=== PATIENT | male | born 1960 | race Caucasian/White ===

== ENCOUNTER 2016-04-22 16:00 | Inpatient (IN) | payer BC ==
[~2016-04-22] VITALS: Ht 182.9 cm; Wt 106.1 kg
--- NOTE | ~2016-04-22 | OR ---
PATIENT'S NAME: [facility] AGE: 55 Y [address] ROOM: [place] [address] LOCATION: [facility] ADMIT DATE: 05/06/2016 OR/Procedure Report DISCHARGE DATE: FAMILY PHYSICIAN: Benjamin Barnett MD ATTENDING PHYSICIAN: KEV MURPHY SURGEON: Kev Murphy DO TRAFFIC CHECKER: DATE OF PROCEDURE: 05/06/2016 PREOPERATIVE DIAGNOSIS: Right knee degenerative arthritis. POSTOPERATIVE DIAGNOSIS: Right knee degenerative arthritis. OPERATION PERFORMED: Right total knee arthroplasty, cemented tibia and femur, using medial parapatellar/subvastus approach. ADMINISTRATION MANAGER: Manoj Chery PA-C. PA was present during entire case, instrumental for positioning, increased visibility, retractor holding, as well as wound closure, dressing placement and transport from OR table. TOURNIQUET TIME: 38 minutes. ANESTHESIA: Preoperative adductor canal block with spinal anesthetic. HARDWARE: The patient's specific implants. Femur size 10, tibia cemented size G. Patelloplasty was performed and not resurfaced. Polyethylene size 11 Medial Congruent. COMPLICATIONS: None. ANTIBIOTICS: Given. TIMEOUT: Performed. 1 gram IV tranexamic acid given on incision, second gram topically at closure. SPECIMENS: None. ESTIMATED BLOOD LOSS: Less than 50 mL. HISTORY: This is a pleasant 55-year-old, has persistent knee pain, has failed conservative therapy including physical therapy, braces, and injections. The patient continues to suffer pain and fails activities of daily living. It is limiting quality of life and ADLs. We had a discussion regarding further treatment options as the patient has failed all conservative care. The patient PATIENT'S NAME: [facility] AGE: 55 Y [address] ROOM: [place] [address] LOCATION: [facility] ADMIT DATE: 05/06/2016 OR/Procedure Report DISCHARGE DATE: FAMILY PHYSICIAN: Benjamin Barnett MD ATTENDING PHYSICIAN: KEV MURPHY wished to proceed with total knee arthroplasty. The risks, benefits, goals and potential complications were discussed. The patient had been through the total joint course and reviewed our online resources in [facility] and then given written handout with the explanations, risks, benefits, and potential treatment complications. Consent signed on the chart. The patient understands the risk of implant recalls; potential for infection up to 2% including deep infection, this could result in multiple surgeries of explant antibiotic spacers and third surgery. The patient understands the risk of fractures; neurovascular injury; damage to arteries, nerves, muscles, tendons; loss of motion; pain; potential to develop a DVT, which could lead to pulmonary embolus and even . The patient has been well informed of the treatment options, risks, benefits, and chance of complications. The patient elects to proceed. DESCRIPTION OF PROCEDURE: The patient was brought back to the operating room theater under anesthesia. The patient was prepped and draped in the usual sterile fashion with the leg exsanguinated and tourniquet inflated. A midline incision starting from the medial aspect of the tibial tubercle approximately 3 fingerbreadths above the superior pole of the patella. Medial parapatellar arthrotomy with subvastus approach exposed the deep capsule. The deep medial capsule was elevated off the medial side of the tibia based on whether they are varus or valgus. Fat pad removed with careful attention not to injure the patellar tendon and the anterior horns of the medial and lateral meniscus were removed. ACL was sacrificed and a retractor was placed protecting the medial and lateral collateral ligaments. The distal cutting block put in position. Appropriate resection taken off the distal femur. After confirmed positioning, slope, proximal tibia resected. Careful attention protecting the collateral ligaments, patellar tendon with bicondylar smooth and dual PCL retractor placed to protect the posterior structures. We then placed a spacer block to confirm adequate bony resections with extension gap. Medial and lateral compartments were cleaned out of any meniscus and soft tissue protecting the collaterals, popliteus, and posterior structures. The anterior and posterior chamfer cuts were made confirming no notching anteriorly. Bony osteophytes removed. A trial femur was placed and using a poly, I floated the tibia confirming intact collateral ligaments and good balancing. If any further releases were needed, those were performed. I confirmed there were no posterior osteophytes of the distal femur, floating technique, I marked the position of the tibia. Final preparation of the femur with lug holes drilled. I then removed the trial femur, placed the tibia, and confirmed axial alignment with PSI and the floating technique. Once satisfied, the trial tibial plate was locked into place confirming with drop benitez appropriate alignment and slope. The final tibia was drilled and cruciate punch performed. With the trials in place, went through range of motion, confirming excellent stability with varus/valgus stress and good stability at 0, 30, and 90 degrees of motion. I confirmed the patella was well tracking after osteophytes PATIENT'S NAME: BRITTANI PASTOR [facility] AGE: 55 Y [address] ROOM: [address] [address] LOCATION: [facility] ADMIT DATE: 05/06/2016 OR/Procedure Report DISCHARGE DATE: FAMILY PHYSICIAN: Benjamin Barnett MD ATTENDING PHYSICIAN: KEV MURPHY removed. A patelloplasty was performed with no resurfacing. All trials were then removed. The bone was pulsatiled to clean and dry surface. Exparel cocktail using multiple stabs with careful aspiration not to inject intravascularly, staying away from the lateral compartment as to not cause foot drop. The tibia was placed followed by femur, held in full extension with trial poly. Excess cement removed. Reconfirmed stability with trial poly. If PCL well functioning, I used a high-flex Medial Congruent poly; if PCL at risk for deficiency, a deep-dish polyethylene used. Once the trial poly was removed, confirmed all cement was hardened and excess cement removed. Range of motion confirmed again prior to final poly being locked into place. Aquamantys was used to establish hemostasis with tourniquet deployed. Final poly locked into place. Hemostasis achieved. Wound closure involved #2 Vicryl in a [id number] pattern along the capsulotomy followed by #2 Quill, Monocryl in a simple buried pattern followed by V-Loc Dermabond. Once the Dermabond cured, the staff placed a Mepilex dressing followed by pulling the thigh-high LULÚ hose over the wound and insulating the skin to prevent soft tissue cold injury from the [employer]. Please note that SCDs and LULÚ hose started preop in the recovery room, continued on the nonoperative site to prevent DVT. Sponge and needle counts were reported correct x3. The patient will be followed by hospitalist, allowed to weight bear as tolerated, with encouraged physical therapy. On the day of surgery, continue prophylactic antibiotics for the first 24 hours. Continue DVT prophylaxis with SCDs, foot pumps, and LULÚ hose. Unless contraindicated, they will start full-strength aspirin within 23 hours and continue for a month. JASBIR Chery was present during entire case, she insisted in transferring the patient to and from the operating table, holding retractors to improve visibility, and hold the extremity. He also assisted in wound closure of the subcutaneous tissue and skin as well as apply dressings and transfer the patient off the operating table. KEV MURPHY DO PH/modl /[id number] d: 05/07/16 0010 t: 05/26/16 1732, OPERATIVE SUMMARY
--- NOTE | ~2016-04-22 | DS ---
PATIENT'S NAME: BRITTANI PASTOR [facility] AGE: 55 Y [address] ROOM: [id number] [place], [place] [address] LOCATION: [facility] ADMIT DATE: 05/06/2016 Discharge Summary DISCHARGE DATE: 05/08/2016 FAMILY PHYSICIAN: Benjamin Barnett MD ATTENDING PHYSICIAN: Luc Murphy ADMISSION DIAGNOSIS: Right knee degenerative joint disease. DISCHARGE DIAGNOSIS: Status post right total knee arthroplasty. HISTORY OF PRESENT ILLNESS: The patient is a very pleasant, 55-year-old male who presented to our office for ongoing persistent right knee pain times several years. The patient stated that he had tried conservative treatment, but had failed and his quality of life as well as activities of daily living have negatively impacted due to right knee pain. The patient has failed conservative therapies with the use of cortisone injections, anti- inflammatories, and physical therapy. The patient wished to discuss total knee arthroplasty. Risks and benefits were discussed including infection up to 2%, DVT, pulmonary embolism, need for further surgery, implant recall; damage to nerves, arteries, veins, ligaments, and tendons; and even . The patient understood these risks and wished to proceed. He was scheduled for a right total knee arthroplasty by Dr. Murphy. The patient was to have a preoperative physical done by his primary care provider within 30 days of surgery. HOSPITAL COURSE: The patient presented to the hospital on 05/06/2016 to undergo a right total knee arthroplasty by Dr. Murphy. Risks and benefits were discussed with the patient and consent was signed with Dr. Murphy present prior to surgery. The patient was taken back to the operating room, and had a right total knee arthroplasty performed by Dr. Murphy. The patient tolerated the procedure well, had no complications. He was taken to PACU and then [facility] for followup care postoperatively. The patient had 23 hours of prophylactic antibiotics per protocol. The patient to be on 24 hours of antibiotics. The patient started DVT prophylactics with the use of resuming his Xarelto at 10 mg daily 23 hours postprocedure per protocol. He had 10 mg of Xarelto for 3 days followed by him returning to his full previous dose of 20 mg daily of Xarelto. The patient did well with physical therapy and occupational therapy, progressed as tolerated each day. The patient did attend and enjoy class taught by Kashif Rodney PA-C, and stated he enjoyed the class very much and was very informative. The patient discharged to home in stable condition. He tolerated the pain medications well without any side effects on 05/08/2016. The patient did have some difficulty with nausea and vomiting due to the Percocet, therefore he was placed on Nucynta which he tolerated well. The patient discharged in stable condition with his . Medications reviewed, new medication Nucynta. Allergies to medications PATIENT'S NAME: BRITTANI PASTOR [facility] AGE: 55 Y [address] ROOM: [id number] [place], [place] [address] LOCATION: [facility] ADMIT DATE: 05/06/2016 Discharge Summary DISCHARGE DATE: 05/08/2016 FAMILY PHYSICIAN: Benjamin Barnett MD ATTENDING PHYSICIAN: Luc Murphy reviewed. DISCHARGE INSTRUCTIONS: 1. Discharge disposition: To home with his . 2. Weightbearing status: Weightbearing as tolerated on the right lower extremity with a walker as needed. 3. Dressing: The Mepilex dressing on until followup. Cover when showering. Avoid use of hot tubs, swimming pools, and lakes. He is to call if any questions or concerns regarding drainage or high fevers. 4. Followup care: The patient to follow up with Dr. Murphy or myself in the clinic in 2 weeks. He will call with any questions or concerns. 5. Diet: Regular as tolerated. PK POSADAS PA-C FOR LUC MURPHY, DO KAPOOR/izzyl /[id number] d: 05/12/161814 t: 05/21/16 1322, DISCHARGE SUMMARY
[2016-04-23] MEDS ORDERED: PRILOSEC20 MG PO (13:32)
[2016-04-23] MEDS ORDERED: TIKOSYN250 MCG PO (13:33)
[2016-04-23] MEDS ORDERED: ASPIRIN EC81 MG PO (13:33)
[2016-04-23] MEDS ORDERED: CELEBREX200 MG PO (13:33)
[2016-04-23] MEDS ORDERED: LOTRISONE15 GM TOP (13:34)
[2016-04-23] MEDS ORDERED: XARELTO20 MG PO (13:34)
[2016-04-23] MEDS ORDERED: BYSTOLIC5 MG PO (13:34)
[2016-04-23] MEDS ORDERED: FISH OIL 1,2001 EAC2 PO (13:35)
[2016-04-23] MEDS ORDERED: THERA-VITE W/ B1 TAB PO (13:35)
[2016-04-23] MEDS ORDERED: EQUATE ALLERGY PO (13:36)
[2016-05-03] MEDS ORDERED: AMOXICILLIN500 MG PO (06:35)
--- NOTE | 2016-05-06 16:52 | NUR ---
Significant Event: From PACU at 1045. Ambulates with one assist and walker. Dressing C/D/I. Ez wrap ice at all times. Dilaudid 2mg at 1620. Titrated to room air. CSM WNL. Follow up:
--- NOTE | 2016-05-06 17:11 | NUR ---
Introduced self/role to patient and . Reviewed and encouraged use of IS. Demonstrates with good technique. Encouraged waving of his feet. In preop class reports has walker, cane, wheelchair, crutches, bath seat, elevated toilet seat, hand held shower head. Lives in [place] in one level home with railing on L side. Planning to return home with help from . WIll follow and asssit with identified needs.
--- NOTE | 2016-05-07 04:15 | NUR ---
Significant Event: A&O. Heart rate irregular, now in 80's-90's. Beginning of shift was 110's-120. Pt does have a hx of Afib. Titrated to room air. Has denied nausea this shift. Voiding w/o difficulty. IV saline locked. Next ATB due at 0800. Mepilex/transparent dressing to R) knee is CDI. Ice and elevated. Ambulates to bathroom with 1 ast, gait belt and walker. CSM WNL. Taking Dilaudid for pain, last at 0153, plan to give again prior to change of shift. Follow up: Cont. to monitor HR.
[2016-05-07 05:54] LABS: HEMATOCRIT 42.8 % (37.0-53.0); HEMOGLOBIN 13.6 g/dL (12.0-17.0)
[2016-05-07 06:07] LABS: ANION GAP 12.3 (10.0-19.0); BLOOD UREA NITROGEN 13 mg/dL (6-24); CALCIUM 8.4 mg/dL (8.5-10.5); CHLORIDE 100 mMol/L (96-110); CO2 30 mMol/L (22-32); CREATININE 1.2 mg/dL (0.6-1.3); ESTIMATED GFR (MDRD EQUATION) > 60; SODIUM 138 mMol/L (135-145)
[2016-05-07 06:13] LABS: POTASSIUM 4.3 mMol/L (3.7-5.1)
--- NOTE | 2016-05-07 11:35 | NUR ---
1135 Introduced self/role to patient. Lives in [place] with his Radha. Plans to return home with the help from her. No additional DME needed. Planning to dismiss tomorrow. Added my name to his marker board, will continue to follow.
--- NOTE | 2016-05-07 15:08 | NUR ---
[facility]: 1300 Patient is provided a Diabetes management Booklet and Diabetes survival Skills checklist. Patient states that he has been told by Dr. Barnett that he has diabetes and is "suppose to be started on oral medication". A1C as per patient was 7.7 % in [facility]. At this time patient does not have a meter and will need diabetes education Will have CDE follow up with patient for on-going education on 05/07/16.
--- NOTE | 2016-05-07 17:01 | NUR ---
Significant Event: Pt is a/o. Cooperative with cares. Has been up in chair, amb to BR with SBA, gait steady. Walker and gait belt. CSM WNL. Dressing c/d/i. Poss discharge tomorrow. Became lightheaded for a while this afternoon, and is better, now. Trang cook @ 7633. Follow up:
--- NOTE | 2016-05-08 04:38 | NUR ---
Significant Event: VSS. Heart rate irregular. Hx afib. No episodes of dizziness this shift. No BM this shift. Voiding without difficulty. Mepilex/tegarderm dressing is CDI. IV SL'd to L wrist. Ambulates with SBA to bathroom. Some increased pain this shift, rates pain 4-5/10. Nucynta and valium given for pain. Follow up: Plans to discharge home today.
--- NOTE | 2016-05-08 12:00 | NUR ---
Diabetes consult: Patient is newly diagnosed with Type II diabetes. The patient was given a Guera contour meter and instructed on it's use. The patient was able to demonstrate the ability to test his blood sugar and had a 2 hour post prandial of 208. Patient was instructed to test blood sugars fasting and 2 hours following a meal. Diabetes survivals skill checklist completed. Patient reports having a history of high cholestrol. Patient states he is willing to meet with a dietitian and certified adaptive physical educator as an outpatient. Referral request sent to Dr. Barnett.
[2016-05-08] MEDS ORDERED: TYLENOL EXTRA500 MG PO (12:02)
[2016-05-08] MEDS ORDERED: COLACE100 MG PO (12:05)
[2016-05-08] MEDS ORDERED: MIRALAX17 GM PO (12:08)
[2016-05-08] MEDS ORDERED: LYRICA 75MG CAP75 MG PO (12:10)
[2016-05-08] MEDS ORDERED: GLUCOPHAGE500 MG PO (12:13)
[2016-05-08] MEDS ORDERED: NUCYNTA50 MG PO (12:22)
--- NOTE | 2016-05-08 15:36 | NUR ---
Dismissal Note: Ambulates with SBA and walker. Dressing C/D/I. Ez wrap ice at all times. Nucynta 50mg and Tylenol 1000mg last at 1140. Denis education given with dismissal instructions, patient and state understanding. Dimsissed to home with .
== END 2016-05-08 13:56 | disposition disaster alternative care site (69) | DRG 470 ==
LOC: G3N 05-06 05:56
PROVIDERS: Obstetrics & Gynecology Obstetrics; ADMIT Orthopaedic Surgery
PROC: 0SRC0J9 Replacement of Right Knee Joint with Synthetic Substitute, Cemented, Open Approach (ICD-10-PCS; principal; 2016-05-06)
DX: M17.11 Unilateral primary osteoarthritis, right knee (principal); I48.1 Persistent atrial fibrillation; I10 Essential (primary) hypertension; Z79.01 Long term (current) use of anticoagulants; I25.10 Atherosclerotic heart disease of native coronary artery without angina pectoris; E11.9 Type 2 diabetes mellitus without complications; K21.9 Gastro-esophageal reflux disease without esophagitis; Z79.82 Long term (current) use of aspirin; Z23 Encounter for immunization
CPT/HCPCS: C1713; C1776; C9290; G0009; J0171; J0690; J0735; J1885; J2001; J2250; J2405; J2550; J2795; J7040; J7120

== ENCOUNTER → 2016-05-12 | Outpatient (CLI) | payer BC ==
[~2016-05-12] MED LIST: AMOXICILLIN500 MG PO; ASPIRIN EC81 MG PO; BYSTOLIC5 MG PO; CELEBREX200 MG PO; COLACE100 MG PO; EQUATE ALLERGY PO; FISH OIL 1,2001 EAC2 PO; GLUCOPHAGE500 MG PO; LOTRISONE15 GM TOP; LYRICA 75MG CAP75 MG PO; MIRALAX17 GM PO; NUCYNTA50 MG PO; PRILOSEC20 MG PO; THERA-VITE W/ B1 TAB PO; TIKOSYN250 MCG PO; TYLENOL EXTRA500 MG PO; XARELTO20 MG PO
== END | disposition disaster alternative care site (69) ==
LOC: GNUT 08:54
DX: E11.9 Type 2 diabetes mellitus without complications (principal)

== ENCOUNTER 2016-09-06 03:29 | Emergency (ER) | payer BC ==
--- NOTE | ~2016-09-06 | ER ---
PATIENT'S NAME: [facility] AGE: 56 Y [address] ROOM: [place] [address] LOCATION: ED ADMIT DATE: 09/06/2016 ER/Outpatient Report DISCHARGE DATE: FAMILY PHYSICIAN: Unruly Ledezma MD ATTENDING PHYSICIAN: Joselito Ramirez Admission date and time documented in the medical record. I saw the patient at 0342 hours. CHIEF COMPLAINT: Low back pain. HISTORY OF PRESENT ILLNESS: This patient is a 56-year-old male with chronic back pain with exacerbation over the past couple of days. The patient did take a long trip to [place] to see a quality specialist. He thinks this trip flared up his low back pain. Does have left leg sciatica to the foot. No bowel or bladder changes. Has had spinal fusion at L5-S1, and apparently his specialist thinks he needs a fusion from L3-L5. No fever, chills, or sweats. No cough, colds, or flus. No fall or trauma. HOME MEDICATIONS: See attached medication list. ALLERGIES: LEVAQUIN, FLU SHOT. SOCIAL HISTORY: Nonsmoker, nondrinker. SIGNIFICANT PAST MEDICAL HISTORY: Paroxysmal atrial fibrillation, chronic low back pain, degenerative disk disease, degenerative joint disease, degenerative osteoarthritis. OPERATIONS: Lumbar back surgery, right total knee arthroplasty. REVIEW OF SYSTEMS: All systems reviewed by me are negative with exception of those discussed in the history of present illness. PHYSICAL EXAMINATION: VITAL SIGNS: Temperature 98.6, pulse 87, respirations 16, blood pressure 137/94, O2 sat on room air is 94%. EXTREMITIES: The patient has diffuse tenderness of his lower back. He has PATIENT'S NAME: [facility] AGE: 56 Y [address] ROOM: [place] [address] LOCATION: ED ADMIT DATE: 09/06/2016 ER/Outpatient Report DISCHARGE DATE: FAMILY PHYSICIAN: Unruly Ledezma MD ATTENDING PHYSICIAN: Joselito Ramirez positive straight leg raising on the left with normal pulses and capillary refill. IMPRESSION: Acute on chronic lumbar back pain. PLAN: The patient was given Dilaudid 1 mg IM plus Toradol 60 mg IM in the emergency department. Dismissed home. Observation. Activity as tolerated. Continue present home medications and care. Medrol Dosepak take as directed. Flexeril 10 mg 3 times a day, #[address] Skelaxin. Follow up with personal physician as needed. May need to have steroid epidural injections. MD KURT MORSE/marci /[id number] d: 09/06/16 0420 t: 09/06/16 1809, OUTPATIENT REPORT
== END 2016-09-06 04:26 | disposition disaster alternative care site (69) ==
LOC: GMED 03:29
DX: G89.29 Other chronic pain (principal); M54.42 Lumbago with sciatica, left side; I48.0 Paroxysmal atrial fibrillation; M19.90 Unspecified osteoarthritis, unspecified site; Z98.890 Other specified postprocedural states; Z88.1 Allergy status to other antibiotic agents; Z88.8 Allergy status to other drugs, medicaments and biological substances; Z79.899 Other long term (current) drug therapy
CPT/HCPCS: J1170; J1885